=== PATIENT | female | born 1990 | race American Indian/Alaskan Native ===

== ENCOUNTER 2018-06-04 10:04 | Emergency (ER) | payer BC, MEDICAID ==
[2018-06-04 10:55] VITALS: BP 120/67
[2018-06-04] MEDS ORDERED: NACL 0.9% 1000 ML 1,000 ML IV ONE (11:03)
[2018-06-04] MEDS ORDERED: TYLENOL PO ONE (11:04)
--- NOTE | 2018-06-04 11:07 | Emergency Department Report ---
HPI - General Chief Complaint: Syncope Time Seen by Provider: 06/04/18 10:36 - HPI HPI: 27 year-old female presents to the emergency department via EMS from work after she passed out. Patient says that she was articulate feeling lightheaded prior to going to work. She was on her way to the bathroom and realized that she passed the restroom and then says that she woke up on the floor. The patient is about 12 weeks . With this she is with 2 previous abortions. 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 reina Horne who operates through [facility] and [facility]. The patient woke up with some left upper chest wall pain and a frontal headache. She does not know whether she hit her head when she passed out. Patient had positive orthostatics with EMS. She received a little bit of IV fluid and round. Mom, who is bedside, says that she has a history of syncopal episodes when she was younger. ED Past Medical Hx - Past Medical History Previous Medical History?: Yes Hx Hypertension: Yes (Vertical hypertension) Hx Diabetes: No Hx Deep Vein Thrombosis: No Hx Renal Disease: No Hx Sickle Cell Disease: No Hx Seizures: No Hx Asthma: No - Surgical History Past Surgical History?: Yes Additional Surgical History: - Social History Smoking Status: Never Smoker Substance Use Type: None - Medications Home Medications: Home Medications Medication Instructions Recorded Confirmed Last Taken Type Vit Calc,Iron,Folic 1 each PO DAILY 11/25/15 11/25/15 11/24/15 21:00 History [ Vitamins] 1 ED Review of Systems ROS: Stated complaint: SYNCOPY Other details as noted in HPI Comment: All other systems reviewed and negative Constitutional: denies: chills, fever Eyes: other (seeing spots intermittently). denies: eye pain, eye discharge, vision change ENT: denies: ear pain, throat pain Respiratory: denies: cough, shortness of breath, wheezing Cardiovascular: chest pain (left upper chest wall pain), syncope Gastrointestinal: denies: abdominal pain, nausea, diarrhea Genitourinary: denies: urgency, dysuria, discharge Musculoskeletal: denies: back pain, joint swelling, arthralgia Skin: denies: rash, lesions Neurological: headache. denies: weakness, numbness Physical Exam - Physical Exam Vital Signs: Vital Signs 06/04/18 06/04/18 06/04/18 10:05 10:14 10:15 Temperature 98.1 F Pulse Rate 78 81 83 Respiratory 20 11 L Rate Blood Pressure 106/66 O2 Sat by Pulse 100 Oximetry 06/04/18 06/04/18 06/04/18 10:16 10:17 10:19 Temperature Pulse Rate 81 72 80 Respiratory 20 20 22 Rate Blood Pressure 106/66 106/66 106/66 O2 Sat by Pulse 99 99 100 Oximetry 06/04/18 06/04/18 06/04/18 10:21 10:23 10:25 Temperature Pulse Rate 78 74 80 Respiratory 19 14 12 Rate Blood Pressure 106/66 106/66 106/66 O2 Sat by Pulse 100 100 100 Oximetry 06/04/18 06/04/18 06/04/18 10:27 10:29 10:30 Temperature Pulse Rate 80 79 80 Respiratory 13 11 L 12 Rate Blood Pressure 106/66 106/66 120/67 O2 Sat by Pulse 100 100 99 Oximetry 06/04/18 06/04/18 06/04/18 10:31 10:33 10:35 Temperature Pulse Rate 78 76 79 Respiratory 18 15 15 Rate Blood Pressure 120/67 120/67 120/67 O2 Sat by Pulse 99 100 99 Oximetry 06/04/18 06/04/18 06/04/18 10:37 10:39 10:41 Temperature Pulse Rate 78 77 80 Respiratory 13 17 15 Rate Blood Pressure 120/67 120/67 120/67 O2 Sat by Pulse 99 100 99 Oximetry Physical Exam: GENERAL: The patient is well-developed well-nourished. HENT: Normocephalic. Atraumatic. Patient has moist mucous membranes. EYES: Extraocular motions are intact. Pupils equal reactive to light bilaterally. Very mild fatigable horizontal nystagmus. NECK: Supple. Trachea is midline. CHEST/LUNGS: Clear to auscultation. There is no respiratory distress noted. HEART/CARDIOVASCULAR: Regular. There is no tachycardia. There is no murmur. ABDOMEN: Abdomen is soft, nontender. Patient has normal bowel sounds. There is no abdominal distention. SKIN: Skin is warm and dry. NEURO: The patient is awake, alert, and oriented. The patient is cooperative. The patient has no focal neurologic deficits. The patient has normal speech. Cranial nerves II through XII grossly intact. MUSCULOSKELETAL: There is no tenderness or deformity. There is no limitation range of motion. There is no evidence of acute injury. ED Course Vital Signs 06/04/18 06/04/18 06/04/18 10:05 10:14 10:15 Temperature 98.1 F Pulse Rate 78 81 83 Respiratory 20 11 L Rate Blood Pressure 106/66 O2 Sat by Pulse 100 Oximetry 06/04/18 06/04/18 06/04/18 10:16 10:17 10:19 Temperature Pulse Rate 81 72 80 Respiratory 20 20 22 Rate Blood Pressure 106/66 106/66 106/66 O2 Sat by Pulse 99 99 100 Oximetry 06/04/18 06/04/18 06/04/18 10:21 10:23 10:25 Temperature Pulse Rate 78 74 80 Respiratory 19 14 12 Rate Blood Pressure 106/66 106/66 106/66 O2 Sat by Pulse 100 100 100 Oximetry 06/04/18 06/04/18 06/04/18 10:27 10:29 10:30 Temperature Pulse Rate 80 79 80 Respiratory 13 11 L 12 Rate Blood Pressure 106/66 106/66 120/67 O2 Sat by Pulse 100 100 99 Oximetry 06/04/18 06/04/18 06/04/18 10:31 10:33 10:35 Temperature Pulse Rate 78 76 79 Respiratory 18 15 15 Rate Blood Pressure 120/67 120/67 120/67 O2 Sat by Pulse 99 100 99 Oximetry 06/04/18 06/04/18 06/04/18 10:37 10:39 10:41 Temperature Pulse Rate 78 77 80 Respiratory 13 17 15 Rate Blood Pressure 120/67 120/67 120/67 O2 Sat by Pulse 99 100 99 Oximetry ED Medical Decision Making - Lab Data Result diagrams: 06/04/18 11:04 06/04/18 11:04 - EKG Data -: EKG Interpreted by Me EKG shows normal: sinus rhythm, axis, intervals, QRS complexes, ST-T waves Rate: normal - EKG Data When compared to previous EKG there are: previous EKG unavailable Interpretation: normal EKG - Radiology Data Radiology results: report reviewed, image reviewed interpreted by me: Chest x-ray does not show any acute process. There are no pleural effusions, obvious pneumonia and there is no pneumothorax. ULTRASOUND OB LESS THAN 14 WEEKS FETUS HISTORY: Abdominal pain during . COMPARISON: None. TECHNIQUE: Transabdominal ultrasound with color doppler interrogation. FINDINGS: An intrauterine with heart rate measuring 157 beats per minute is identified. Estimated age on ultrasound is 12 weeks 0 days. The placenta appears to be forming in the anterior fundal region. No subplacental collection. Amniotic fluid volume appears normal. The cervix is obscured. The ovaries are within normal limits. No pelvic fluid collection. IMPRESSION: Viable, single intrauterine as described. No acute abnormality is detected. Transcribed By: TTR Dictated By: NYLA ELLISON JR, MD Electronically Authenticated By: NYLA ELLISON JR, MD Signed Date/Time: 06/04/18 8456 - Medical Decision Making This patient presents to the emergency department at 12 weeks with a complaint of some dizziness and a syncopal episode just prior to arrival. EMS checked orthostatics on the patient and they were positive. On examination the patient does not have any focal, motor or sensory deficits in her cranial nerves are intact. EKG did not show any signs of ST elevation [place], ischemia or dysrhythmia. Labs have been unremarkable as any etiology of her symptoms. Turns out the patient does have history of previous syncopal episodes dating back to when she was a child. She was given some IV fluid, some food. She was reevaluated multiple times over multiple hours and is feeling improved. Ultrasound shows a live intrauterine at about 12 weeks. Chest x-ray does not show any focal consolidation, pneumothorax, pneumonia or pleural effusion or any other acute process. Vital signs stable throughout her ED course. Since patient does not have any deficits and just had a single syncopal episode recently, I do not feel that CT imaging of the head was necessary. The patient will have any chest pain, back pain or shortness of breath. Prior to discharge, the patient was seen ambulatory throughout the emergency department and appeared stable while doing so. She is going to follow up with her primary care physician and her [employer] MACHINE [employer]EDER. She will return to the ER with any worsening of her symptoms or any acute distress. - Differential Diagnosis orthostatic hypotension, vasovagal, dysrhythmia, TIA Critical Care Time: No Critical care attestation.: If time is entered above; I have spent that time in minutes in the direct care of this critically ill patient, excluding procedure time. ED Disposition Clinical Impression: Orthostatic hypotension Qualifiers: Weeks of gestation: 12 weeks Qualified Code(s): Z3A.12 - 12 weeks gestation of Syncope Qualifiers: Syncope type: unspecified Qualified Code(s): R55 - Syncope and collapse Disposition: DC-01 TO HOME OR SELFCARE Is pt being admited?: No Condition: Stable Instructions: (ED), Syncope (ED) Additional Instructions: Please follow-up with your primary care physician and/or BORING MACHINE FEEDER in the next few days. Return to the emergency department with any further episodes of passing out, development of vaginal bleeding, worsening of your symptoms, or with any acute distress. Referrals: TICO OWENS MD [Primary Care Provider] - 3-5 Days REINA HORNE MD [Referring] - 3-5 Days Time of Disposition: 13:58
[2018-06-04 11:25] LABS: Basophils % (Auto) 0.5 % (0.0-1.8); Eosinophils # (Auto) 0.1 K/mm3 (0.0-0.4); Eosinophils % (Auto) 1.3 % (0.0-4.3); Hematocrit 33.4 % (30.3-42.9); Hemoglobin 10.9 gm/dl (10.1-14.3); Lymphocytes # (Auto) 1.7 K/mm3 (1.2-5.4); Lymphocytes % (Auto) 29.5 % (13.4-35.0); Mean Corpuscular HGB Conc 33 % (30-34); Mean Corpuscular Hemoglobin 27 pg (28-32); Mean Corpuscular Volume 83 fl (79-97); Monocytes # (Auto) 0.6 K/mm3 (0.0-0.8); Monocytes % (Auto) 11.1 % (0.0-7.3); Platelet Count 225 K/mm3 (140-440); Red Blood Count 4.03 M/mm3 (3.65-5.03); Red Cell Distribution Width 15.1 % (13.2-15.2)
[2018-06-04 11:40] LABS: BUN/Creatinine Ratio 20; Blood Urea Nitrogen 10 mg/dL (7-17); Calcium 8.8 mg/dL (8.4-10.2); Hemolysis Index 5
[2018-06-04 11:49] LABS: Bacteria,Urine 2+ /HPF (Negative); Bilirubin,Urine NEG (Negative); Blood,Urine NEG (Negative); Color,Urine Yellow (Yellow); Protein,Urine <15 mg/dL mg/dL (Negative); Urobilinogen,Urine < 2.0 mg/dL (<2.0)
--- NOTE | 2018-06-04 12:24 | XRay Report ---
AP CHEST: HISTORY: chest pain AP view of the chest demonstrates a normal mediastinal and cardiac contour with clear lungs and normal bony and soft tissue structures. IMPRESSION: Unremarkable AP chest.
--- NOTE | 2018-06-04 12:48 | Ultrasound Report ---
ULTRASOUND OB LESS THAN 14 WEEKS FETUS HISTORY: Abdominal pain during . COMPARISON: None. TECHNIQUE: Transabdominal ultrasound with color doppler interrogation. FINDINGS: An intrauterine with heart rate measuring 157 beats per minute is identified. Estimated age on ultrasound is 12 weeks 0 days. The placenta appears to be forming in the anterior fundal region. No subplacental collection. Amniotic fluid volume appears normal. The cervix is obscured. The ovaries are within normal limits. No pelvic fluid collection. IMPRESSION: Viable, single intrauterine as described. No acute abnormality is detected.
== END 2018-06-04 14:41 | disposition home or self-care (01) ==
LOC: ED 10:04
DX: O26.891 Other specified pregnancy related conditions, first trimester (principal); R55 Syncope and collapse; O26.51 Maternal hypotension syndrome, first trimester; I10 Essential (primary) hypertension; Z3A.12 12 weeks gestation of pregnancy
CPT/HCPCS: 36415; 71045; 76801; 80048; 81001; 84443; 84484; 84703; 85025; 93005; 93010; 96360; 99285; J7030